=== PATIENT | male | born 1995 | race Caucasian/White ===

== ENCOUNTER 2019-01-06 10:31 | Emergency (ER) | payer OTHER ==
[~2019-01-06] VITALS: Ht 177.8 cm; Wt 65.1 kg
[2019-01-06 10:48] VITALS: Ht 177.8 cm; Wt 65.1 kg
[2019-01-06 11:39] VITALS: BP 122/66
== END 2019-01-06 11:39 | disposition home or self-care (01) ==
LOC: ED 10:31
DX: S82.001A Unspecified fracture of right patella, initial encounter for closed fracture (principal); W01.198A Fall on same level from slipping, tripping and stumbling with subsequent striking against other object, initial encounter; Y93.01 Activity, walking, marching and hiking; Y92.098 Other place in other non-institutional residence as the place of occurrence of the external cause; Y99.8 Other external cause status

== ENCOUNTER 2019-12-14 20:49 | Emergency (ER) | payer OTHER, SELFPAY ==
[2019-12-14 21:45] VITALS: BP 127/86
== END 2019-12-14 21:45 | disposition home or self-care (01) ==
LOC: ED 20:49
DX: A49.02 Methicillin resistant Staphylococcus aureus infection, unspecified site (principal); R21 Rash and other nonspecific skin eruption

== ENCOUNTER 2020-03-16 07:17 | Emergency (ER) | payer OTHER, SELFPAY ==
[~2020-03-16] VITALS: Ht 172.7 cm; Wt 72.6 kg
[2020-03-16 07:19] VITALS: BP 118/76; Ht 172.7 cm; Wt 72.6 kg
== END 2020-03-16 08:43 | disposition home or self-care (01) ==
LOC: ED 07:17
DX: K29.70 Gastritis, unspecified, without bleeding (principal); Z20.828 Contact with and (suspected) exposure to other viral communicable diseases
CPT/HCPCS: U0003